=== PATIENT | male | born 1950 | race Caucasian/White ===

== ENCOUNTER 2021-04-04 06:03 | Emergency (ER) | payer MEDICARE, OTHER ==
[~2021-04-04] VITALS: Ht 193 cm; Wt 99.8 kg
[2021-04-04] MEDS ORDERED: HYDROcodone-ACET 10/325MG TAB PO ONE (07:30)
[2021-04-04 09:37] LABS: Basophils # (auto) 0 10 ^3/uL (0-0.2); Basophils % (auto) 0.8 % (0.0-2.0); Eosinophils # (auto) 0.2 10 ^3/uL (0-0.8); Eosinophils % (auto) 2.9 % (0.0-7.0); Hematocrit 42.4 % (41.0-53.0); Hemoglobin 14.7 g/dL (13.5-17.5); Lymphocytes # (auto) 1.5 10 ^3/uL (0.4-5.4); Lymphocytes % (auto) 25.9 % (10.0-50.0); Mean Corpuscular Hemoglobin 34.7 pg (28.0-32.0); Mean Corpuscular Hgb Conc. 34.7 g/dL (32.0-36.0); Monocytes # (auto) 0.7 10 ^3/uL (0-1.3); Monocytes % (auto) 12.8 % (0.0-12.0); Neutrophils # (auto) 3.3 10 ^3/uL (1.6-8.6); Neutrophils % (auto) 57.6 % (37.0-80.0); Nucleated Red Blood Cells % 0.2 %; Red Blood Cells 4.24 10^6/uL (4.5-5.90); Red Cell Distribution Width 13.1 % (11.8-14.3); White Blood Cell 5.7 10^3/uL (4.4-10.8)
[2021-04-04 09:54] LABS: Albumin 2.4 g/dL (3.4-5.0); BUN/Creatinine Ratio 21.3; Bilirubin, Total 0.5 mg/dL (0.2-1.0); Calcium 8.6 mg/dL (8.5-10.1); Total Protein 6.1 g/dL (6.4-8.2)
[2021-04-04 12:48] VITALS: BP 116/98
== END 2021-04-04 12:36 | disposition home or self-care (01) ==
LOC: EDBD 06:03 → ER 06:03
DX: S16.1XXA Strain of muscle, fascia and tendon at neck level, initial encounter (principal); R51.9 Headache, unspecified; I10 Essential (primary) hypertension; E11.9 Type 2 diabetes mellitus without complications; Z87.442 Personal history of urinary calculi; Z90.49 Acquired absence of other specified parts of digestive tract; W18.39XA Other fall on same level, initial encounter; Y93.89 Activity, other specified; Y92.89 Other specified places as the place of occurrence of the external cause; Y99.8 Other external cause status
CPT/HCPCS: 36415; 70450; 71045; 72125; 80053; 85025

== ENCOUNTER 2022-08-25 13:53 | Emergency (ER) | payer MEDICARE, OTHER ==
[~2022-08-25] VITALS: Ht 193 cm; Wt 123.0 kg
[2022-08-25 14:36] VITALS: BP 150/86
[2022-08-25] MEDS ORDERED: HYDROcodone-ACET 5/325MG TAB PO ONE (16:00)
[2022-08-25] MEDS ORDERED: METH750T22 PO ×3 (16:13→16:52)
[2022-08-25] MEDS ORDERED: IBUP800T27 PO ×3 (16:13→16:52)
== END 2022-08-25 16:22 | disposition home or self-care (01) ==
LOC: EDBD 13:53 → ER 13:53
DX: S76.012A Strain of muscle, fascia and tendon of left hip, initial encounter (principal); S39.012A Strain of muscle, fascia and tendon of lower back, initial encounter; M51.36 Other intervertebral disc degeneration, lumbar region; E11.9 Type 2 diabetes mellitus without complications; I10 Essential (primary) hypertension; Z87.442 Personal history of urinary calculi; Z90.49 Acquired absence of other specified parts of digestive tract; X50.9XXA Other and unspecified overexertion or strenuous movements or postures, initial encounter; Y93.89 Activity, other specified; Y92.89 Other specified places as the place of occurrence of the external cause; Y99.8 Other external cause status
CPT/HCPCS: 72131; 73700

== ENCOUNTER 2022-08-28 05:05 | Emergency (ER) | payer OTHER ==
[~2022-08-28] VITALS: Ht 190.5 cm; Wt 118.1 kg
[~2022-08-28 05:05] MED LIST: IBUP800T27 PO; METH750T22 PO
[2022-08-28 05:21] VITALS: BP 144/97
== END 2022-08-28 07:03 | disposition home or self-care (01) ==
LOC: EDBD 05:05 → ER 05:05
DX: M54.59 Other low back pain (principal); M25.552 Pain in left hip; E11.9 Type 2 diabetes mellitus without complications; I10 Essential (primary) hypertension; Z87.442 Personal history of urinary calculi; Z90.49 Acquired absence of other specified parts of digestive tract